=== PATIENT | male | born 1980 | race African-American/Black ===

== ENCOUNTER 2016-11-14 09:26 | Inpatient (IN) | payer OTHER ==
[2016-11-14 10:24] VITALS: BMI 25.7
--- NOTE | 2016-11-14 11:54 | HP ---
CIWA Score - CIWA Score Nausea/Vomitin-Int. Nausea w/Dry Heave Muscle Tremors: 2 Anxiety: 4-Mod. Anxious/Guarded Agitation: 1-Slight > Activity Paroxysmal Sweats: 3 Orientation: 0-Oriented Tacttile Disturbances: 0-None Auditory Disturbances: 0-None Visual Disturbances: 2-Mild Sensitivity Headache: 2-Mild CIWA-Ar Total Score: 18 Admission ROS BHS - HPI Chief Complaint: "I need help, I need to Detox." Pt. is here to Detox from Alcohol. Allergies/Adverse Reactions: Allergies Allergy/AdvReac Type Severity Reaction Status Date / Time No Known Allergies Allergy Verified 11/14/16 11:20 History of Present Illness: Pt. is a 36 YO male here to Detox from Alcohol. This is pt.'s first Detox admission at [facility]. Pt. had 1 Rehab admission at [facility] in 2013. Exam Limitations: No Limitations - Ebola screening Have you traveled outside of the country in the last 21 days: No Have you had contact with anyone from an Ebola affected area: No Have you been sick,other than usual withdrawal symptoms: No Do you have a fever: No - Review of Systems Constitutional: Diaphoresis, Loss of Appetite, Malaise, Night Sweats, Changes in sleep, Unintentional Wgt. Loss (Lost approx. 25 lbs. over last 3 months.) Respiratory: reports: SOB with Exertion Cardiac: reports: Palpitations, Syncope (Last episode several months ago.) GI: reports: Nausea, Indigestion (Heartburn.) : reports: No Symptoms Reported Musculoskeletal: reports: No Symptoms Reported Integumentary: reports: No Symptoms Reported Neuro: reports: Headache, Tremors Endocrine: reports: No Symptoms Reported Hematology: reports: No Symptoms Reported Psychiatric: reports: Judgement Intact, Mood/Affect Appropiate, Orientated x3, Anxious, Depressed (On meds.) Other Systems: Reviewed and Negative Patient History - Patient Medical History Hx Anemia: No Hx Asthma: Yes (Uses Albuterol Inhaler.) Hx Chronic Obstructive Pulmonary Disease (COPD): No Hx Cancer: No Hx Cardiac Disorders: No Hx Congestive Heart Failure: No Hx Hypertension: No Hx Hypercholesterolemia: No Hx Pacemaker: No HX Cerebrovascular Accident: No Hx Seizures: No Hx Dementia: No Hx Diabetes: No Hx Gastrointestinal Disorders: No Hx Liver Disease: No Hx Genitourinary Disorders: No Hx Sexually Transmitted Disorders: No Hx Renal Disease (ESRD): No Hx Thyroid Disease: No Hx Human Immunodeficiency Virus (HIV): No (Last Tested: 2016: NEGATIVE.) Hx Hepatitis C: No (Last Tested: 2016: NEGATIVE.) Hx Depression: Yes (On meds.) Hx Suicide Attempt: No (2007 (Tried to hang himself), 2013 (Drug OD). PT. DENIES CURRENT SI/HI.) Hx Bipolar Disorder: No Hx Schizophrenia: Yes (W/ Paranoia. On meds.) Other Medical History: DENIES. - Patient Surgical History Past Surgical History: No Hx Neurologic Surgery: No Hx Cataract Extraction: No Hx Cardiac Surgery: No Hx Lung Surgery: No Hx Breast Surgery: No Hx Breast Biopsy: No Hx Abdominal Surgery: No Hx Appendectomy: No Hx Cholecystectomy: No Hx Genitourinary Surgery: No Hx Orthopedic Surgery: No Anesthesia Reaction: No - PPD History Previous Implant?: Yes Documented Results: Negative w/o proof Implanted On Prior R Admission?: No PPD to be Administered?: Yes - Reproductive History Patient is a Female of Child Bearing Age (11 -55 yrs old): No (PATIENT IS MALE.) - Smoking Cessation Smoking history: Current every day smoker Have you smoked in the past 12 months: Yes Aproximately how many cigarettes per day: 5 Cigars Per Day: 0 Hx Chewing Tobacco Use: No Initiated information on smoking cessation: Yes 'Breaking Loose' booklet given: 11/14/16 (GIVEN ON UNIT.) - Substance & Tx. History Hx Alcohol Use: Yes Hx Substance Use: Yes Substance Use Type: Alcohol, Cocaine Hx Substance Use Treatment: Yes (1 REHAB admission at [facility] - 2014.) - Substances Abused Alcohol Route: Oral Frequency: Daily Amount used: Rum(1 pint)/alden(1pint) Age of first use: 12 Date of Last Use: 11/14/16 Cocaine Route: Inhalation Frequency: 1-2 times per week Amount used: $ 40. Age of first use: 27 Date of Last Use: 11/10/16 Family Disease History - Family Disease History Family Disease History: Heart Disease: Daughter (Heart defect; No spleen.), CA: Father (Bone, Lung Ca, .), Other: Brother (.) Admission Physical Exam BHS - Vital Signs Vital Signs: Vital Signs - 24 hr 11/14/16 10:22 Temperature 96.3 F L Pulse Rate 81 Respiratory 18 Rate Blood Pressure 122/83 - Physical General Appearance: Yes: Nourished, Appropriately Dressed, Mild Distress, Tremorous, Irritable, Anxious HEENTM: Yes: Hearing grossly Normal, Normocephalic, Normal Voice, NIVIA, Pharynx Normal Respiratory: Yes: Chest Non-Tender, Lungs Clear, No Respiratory Distress, No Accessory Muscle Use Neck: Yes: No masses,lesions,Nodules, Supple, Trachea in good position Breast: Yes: Breast Exam Deferred Cardiology: Yes: Regular Rhythm, Regular Rate, S1, S2 Abdominal: Yes: Normal Bowel Sounds, Non Tender, Soft, Protuberent Genitourinary: Yes: Within Normal Limits Back: Yes: Normal Inspection Musculoskeletal: Yes: full range of Motion, Gait Steady Extremities: Yes: Normal Range of Motion, Non-Tender, Tremors Neurological: Yes: Fully Oriented, Alert, Normal Mood/Affect, Normal Response Integumentary: Yes: Normal Color, Dry, Warm Lymphatic: Yes: Within Normal Limits - Diagnostic (1) Alcohol dependence with uncomplicated withdrawal Current Visit: Yes Status: Acute (2) Cocaine dependence, uncomplicated Current Visit: Yes Status: Acute (3) Nicotine dependence Current Visit: Yes Status: Chronic Qualifiers: Nicotine product type: cigarettes Substance use status: uncomplicated Qualified Code(s): F17.210 - Nicotine dependence, cigarettes, uncomplicated (4) History of depression Current Visit: Yes Status: Chronic (5) History of schizophrenia Current Visit: Yes Status: Chronic (6) Chronic heartburn Current Visit: Yes Status: Chronic Cleared for Admission [facility] - Detox or Rehab [facility] Level of Care: Medically Managed Detox Regimen/Protocol: Librium [facility] Breath Alcohol Content Breath Alcohol Content: 0 Urine Drug Screen - Results Drug Screen Negative: No Urine Drug Screen Results: MASON-Cocaine
[2016-11-14] MEDS ORDERED: chlordiazePOXIDE HCL 25 MG CAPSULE PO PRN (12:25)
[2016-11-14] MEDS ORDERED: chlordiazePOXIDE HCL 25 MG CAPSULE PO ONE (12:25)
[2016-11-14] MEDS ORDERED: MENTHOL/PHENOL 1 EACH UD MM PRN (12:25)
[2016-11-14] MEDS ORDERED: IBUPROFEN 400 MG TABLET (FP) PO PRN (12:25)
[2016-11-14] MEDS ORDERED: NICOTINE POLACRILEX 2 MG GUM BC PRN (12:25)
[2016-11-14] MEDS ORDERED: ACETAMINOPHEN 325 MG TABLET (FP) PO PRN (12:25)
[2016-11-14] MEDS ORDERED: LOPERAMIDE HCL 2 MG CAPSULE PO PRN (12:25)
[2016-11-14] MEDS ORDERED: MAGNESIUM CITRATE 300 ML BOTTLE PO PRN (12:25)
[2016-11-14] MEDS ORDERED: P-EPHED 60MG/TRIPROLIDI 2.5MG TABLET PO PRN (12:25)
[2016-11-14] MEDS ORDERED: guaiFENesin/D-METHORPHAN HB 10 ML UNIT-DOSE CUPS PO PRN (12:25)
[2016-11-14] MEDS ORDERED: MAG HYDROX/AL HYDROX/SIMETH 30 ML UNIT-DOSE CUP PO PRN (12:25)
[2016-11-14] MEDS ORDERED: MAGNESIUM HYDROX 2400MG/30ML ORAL SUSPENSION 30 ML CUP PO PRN (12:25)
[2016-11-14] MEDS ORDERED: diphenhydrAMINE HCL 50 MG CAPSULE PO PRN (12:25)
[2016-11-14] MEDS ORDERED: hydrOXYzine PAMOATE 50 MG CAPSULE (FP) PO PRN (12:25)
[2016-11-14] MEDS ORDERED: ALBUTEROL SO4 6.7 GM HFA INHALER IH PRN (12:30)
--- NOTE | 2016-11-14 13:37 | EKG ---
Test Reason : Blood Pressure : / mmHG Vent. Rate : 075 BPM Atrial Rate : 075 BPM P-R Int : 154 ms QRS Dur : 084 ms QT Int : 372 ms P-R-T Axes : 047 023 025 degrees QTc Int : 415 ms NORMAL SINUS RHYTHM WITH SINUS ARRHYTHMIA NORMAL ECG NO PREVIOUS ECGS AVAILABLE Confirmed by CÉSAR CRAFT MD ([id number]) on 11/14/2016 1:36:33 PM Referred By: Confirmed By:CÉSAR CRAFT MD
[2016-11-14] MEDS: PANTOPRAZOLE 20 MG TABLET (FP) PO SCH (13:43)
[2016-11-14] MEDS: NICOTINE 14 MG/24 HOURS TOPICAL PATCH TD SCH (13:45)
[2016-11-14] MEDS: chlordiazePOXIDE HCL 25 MG CAPSULE PO SCH ×2 (17:11→22:29)
[2016-11-14 18:26] LABS: URINE APPEARANCE SLCLOUDY; URINE BILIRUBIN NEGATIVE (NEGATIVE); URINE BLOOD NEGATIVE (NEGATIVE); URINE COLOR YELLOW; URINE GLUCOSE (UA) NEGATIVE (NEGATIVE); URINE KETONE NEGATIVE (NEGATIVE); URINE LEUK ESTERASE NEGATIVE (NEGATIVE); URINE NITRITE NEGATIVE (NEGATIVE); URINE PROTEIN NEGATIVE (NEGATIVE); URINE UROBILINOGEN NEGATIVE mg/dL (0.2-1.0)
[2016-11-14] MEDS: THIAMINE HCL 100 MG TABLET (FP) PO SCH (22:29)
[2016-11-15] MEDS: chlordiazePOXIDE HCL 25 MG CAPSULE PO SCH ×4 (05:53→22:44)
[2016-11-15 10:06] LABS: MCH 27.2 pg (25.7-33.7); MCHC 32.8 g/dl (32.0-35.9); MEAN CELL VOLUME 82.8 fl (80-96); MEAN PLT VOLUME 8.1 fl (7.5-11.1); PLATELET COUNT 304 K/MM3 (134-434); RDW 12.9 % (11.9-15.9); WHITE BLOOD COUNT 9.2 K/mm3 (4.0-10.0)
[2016-11-15 10:30] LABS: ALBUMIN 3.2 g/dl (3.4-5.0); ALK PHOS 88 U/L (45-117); ANION GAP 7 (8-16); BILIRUBIN,TOTAL 0.2 mg/dL (0.2-1.0); CALCIUM 9.5 mg/dL (8.5-10.1); CO2 32 mmol/L (21-32); CREATININE 1.1 mg/dL (0.7-1.3); GLUCOSE,RANDOM 96 mg/dL (74-106); SGOT/AST 14 U/L (15-37); SGPT/ALT 31 U/L (12-78)
[2016-11-15] MEDS: NICOTINE 14 MG/24 HOURS TOPICAL PATCH TD SCH (10:40)
[2016-11-15] MEDS: PANTOPRAZOLE 20 MG TABLET (FP) PO SCH (10:40)
[2016-11-15] MEDS: PRENATAL VITAMINS W/ FOLIC ACID TABLET (FP) PO SCH (10:40)
--- NOTE | 2016-11-15 10:45 | PN ---
[facility] CIWA - CIWA Score Nausea/Vomitin-No Nausea/No Vomiting Muscle Tremors: 4-Moderate,w/Arms Extend Anxiety: 3 Agitation: 3 Paroxysmal Sweats: 3 Orientation: 0-Oriented Tacttile Disturbances: 0-None Auditory Disturbances: 0-None Visual Disturbances: 0-None Headache: 0-None Present CIWA-Ar Total Score: 13 S Progress Note (SOAP) Subjective: Anxiety,tremors,sweating,interrupted sleep,restless Objective: 11/15/16 10:44 Vital Signs - 8 hr 11/15/16 11/15/16 11/15/16 03:52 06:25 09:39 Temperature 96.6 F L 96.6 F L Pulse Rate 72 77 Respiratory 18 18 18 Rate Blood Pressure 130/92 127/92 Laboratory Last Values WBC 9.2 K/mm3 (4.0-10.0) 11/15/16 07:00 RBC 5.59 M/mm3 (4.00-5.60) 11/15/16 07:00 Hgb 15.2 GM/dL (11.7-16.9) 11/15/16 07:00 Hct 46.3 % (35.4-49) 11/15/16 07:00 MCV 82.8 fl (80-96) 11/15/16 07:00 MCH 27.2 pg (25.7-33.7) 11/15/16 07:00 MCHC 32.8 g/dl (32.0-35.9) 11/15/16 07:00 RDW 12.9 % (11.9-15.9) 11/15/16 07:00 Plt Count 304 K/MM3 (134-434) 11/15/16 07:00 MPV 8.1 fl (7.5-11.1) 11/15/16 07:00 Sodium 142 mmol/L (136-145) 11/15/16 07:00 Potassium 4.0 mmol/L (3.5-5.1) 11/15/16 07:00 Chloride 103 mmol/L (98-107) 11/15/16 07:00 Carbon Dioxide 32 mmol/L (21-32) 11/15/16 07:00 Anion Gap 7 (8-16) L 11/15/16 07:00 BUN 9 mg/dL (7-18) 11/15/16 07:00 Creatinine 1.1 mg/dL (0.7-1.3) 11/15/16 07:00 Creat Clearance w eGFR > 60 (>60) 11/15/16 07:00 Random Glucose 96 mg/dL (74-106) 11/15/16 07:00 Calcium 9.5 mg/dL (8.5-10.1) 11/15/16 07:00 Total Bilirubin 0.2 mg/dL (0.2-1.0) 11/15/16 07:00 AST 14 U/L (15-37) L 11/15/16 07:00 ALT 31 U/L (12-78) 11/15/16 07:00 Alkaline Phosphatase 88 U/L (45-117) 11/15/16 07:00 Total Protein 7.0 g/dl (6.4-8.2) 11/15/16 07:00 Albumin 3.2 g/dl (3.4-5.0) L 11/15/16 07:00 Urine Color Yellow 11/14/16 16:45 Urine Appearance Slcloudy 11/14/16 16:45 Urine pH 6.0 (5.0-8.0) 11/14/16 16:45 Ur Specific [place] 1.025 (1.005-1.025) 11/14/16 16:45 Urine Protein Negative (NEGATIVE) 11/14/16 16:45 Urine Glucose (UA) Negative (NEGATIVE) 11/14/16 16:45 Urine Ketones Negative (NEGATIVE) 11/14/16 16:45 Urine Blood Negative (NEGATIVE) 11/14/16 16:45 Urine Nitrite Negative (NEGATIVE) 11/14/16 16:45 Urine Bilirubin Negative (NEGATIVE) 11/14/16 16:45 Urine Urobilinogen Negative mg/dL (0.2-1.0) 11/14/16 16:45 Ur Leukocyte Esterase Negative (NEGATIVE) 11/14/16 16:45 labs noted Assessment: 11/15/16 10:45 Withdrawal sx. Plan: Continue detox
[2016-11-15 11:22] LABS: HIV 1 & 2 AB NEGATIVE; HIV 1 AGp24 NEGATIVE
[2016-11-15 12:21] LABS: SICKLE CELL SCREEN NEGATIVE (NEGATIVE)
--- NOTE | 2016-11-15 12:30 | CONSULT ---
[facility] Psychiatric Consult - Data Date of interview: 11/15/16 Admission source: [facility] Identifying data: First admission to [facility] for this 36 y/o male from [place] ancestry seeking detox treatment on for alcohol and cocaine dependence.Patient is ,a father of two,domiciled,unemployed and supported on welfare. Substance Abuse History: Discusssed with patient in this interview.Mr Hagen confirms this [facility] report. Smoking Cessation. Smoking history: Current every day smoker. Have you smoked in the past 12 months: Yes. Aproximately how many cigarettes per day: 5. Cigars Per Day: 0. Hx Chewing Tobacco Use: No. Initiated information on smoking cessation: Yes. 'Breaking Loose' booklet given : 11/14/16 (GIVEN ON UNIT.). - Substance & Tx. History. Hx Alcohol Use: Yes. Hx Substance Use: Yes. Substance Use Type: Alcohol, Cocaine. Hx Substance Use Treatment: Yes (1 REHAB admission at [facility] - 2014.) . - Substances Abused. Alcohol. Route: Oral. Frequency: Daily. Amount used: Rum(1 pint)/alden(1pint). Age of first use: 12. Date of Last Use: 11/14. Cocaine. Route: Inhalation. Frequency: 1-2 times per week. Amount used: $ 40. Age of first use: 27. Date of Last Use: 11/10/16 Medical History: Bronchial asthma. Psychiatric History: Patient is an irritable and guarded historian.Reluctant to provide personal information.Mr Hagen admits to a history of psychiatric hospitalizations at [facility].Diagnosed with Paranoid Schizophrenia.History of treatment with various drugs including but not limited to zoloft,wellbutrin,risperdal,abilify and prozac.OPD care is rendered at [facility] clinic in [facility].Noted history of past suicide attempts (hanging in [address] drugs in 2013). Physical/Sexual Abuse/Trauma History: Patient denies. Additional Comment: Urine Drug Screen Results: MASON-Cocaine.Noted. Mental Status Exam - Mental Status Exam Alert and Oriented to: Time, Place, Person Cognitive Function: Good Patient Appearance: Unkempt, Disheveled Mood: Hostile, Withdrawn, Irritable Affect: Blunted Patient Behavior: Fatigued, Guarded, Suspicious (avoids eye contact) Speech Pattern: Clear (non spontaneous) Voice Loudness: Normal Thought Process: Goal Oriented Thought Disorder: Paranoid Ideation, Bizarre Hallucinations: Denies Suicidal Ideation: Denies Homicidal Ideation: Denies Insight/Judgement: Poor Sleep: Poorly, Difficulty falling asleep Appetite: Good Muscle strength/Tone: Normal Gait/Station: Normal Psychiatric Findings - Problem List ([place] 1, 2,3) (1) Schizophrenia, paranoid type Current Visit: Yes Status: Chronic (2) Cocaine dependence, uncomplicated Current Visit: Yes Status: Acute (3) Nicotine dependence Current Visit: Yes Status: Acute Qualifiers: Nicotine product type: cigarettes Substance use status: uncomplicated Qualified Code(s): F17.210 - Nicotine dependence, cigarettes, uncomplicated (4) Substance induced mood disorder Current Visit: Yes Status: Acute (5) Insomnia Current Visit: Yes Status: Acute - Initial Treatment Plan Initial Treatment Plan: Psychoeducation.Detoxification.Medications : risperdal 2 mg po bid + cogentin 1 mg po bid + zoloft 100 mg po daily + wellbutrin XL 300 mg po daily.Medications are verified with pharmacist at [facility] ).Last filled scripts on 10/07/16.Side effects/benefits discussed with patient.Mr Hagen agrees to continue this regime of medications in this hospital course.Observation.
[2016-11-15] MEDS: BENZTROPINE MESYLATE 1 MG TABLET (FP) PO SCH ×2 (14:34→22:44)
[2016-11-15] MEDS: risperiDONE 2 MG TABLET PO SCH ×2 (14:34→22:44)
[2016-11-15] MEDS: SERTRALINE HCL 50 MG TABLET (FP) PO SCH (14:34)
[2016-11-15] MEDS: THIAMINE HCL 100 MG TABLET (FP) PO SCH (22:45)
[2016-11-16] MEDS: chlordiazePOXIDE HCL 25 MG CAPSULE PO SCH ×2 (05:37→10:27)
[2016-11-16] MEDS: BENZTROPINE MESYLATE 1 MG TABLET (FP) PO SCH ×2 (10:27→22:50)
[2016-11-16] MEDS: PANTOPRAZOLE 20 MG TABLET (FP) PO SCH (10:27)
[2016-11-16] MEDS: SERTRALINE HCL 50 MG TABLET (FP) PO SCH (10:27)
[2016-11-16] MEDS: risperiDONE 2 MG TABLET PO SCH ×2 (10:27→22:50)
[2016-11-16] MEDS: PRENATAL VITAMINS W/ FOLIC ACID TABLET (FP) PO SCH (10:27)
[2016-11-16] MEDS: NICOTINE 14 MG/24 HOURS TOPICAL PATCH TD SCH (10:27)
--- NOTE | 2016-11-16 11:12 | PN ---
[facility] CIWA - CIWA Score Nausea/Vomitin-Int. Nausea w/Dry Heave Muscle Tremors: 4-Moderate,w/Arms Extend Anxiety: 3 Agitation: 3 Paroxysmal Sweats: 1-Minimal Palms Moist Orientation: 0-Oriented Tacttile Disturbances: 2-Mild Itch/Numbness/Burn Auditory Disturbances: 0-None Visual Disturbances: 0-None Headache: 0-None Present CIWA-Ar Total Score: 17 BHS Progress Note (SOAP) Subjective: ANXIETY,TREMORS,NAUSEA. Objective: 11/16/16 11:11 Vital Signs Temperature 98.6 F 11/16/16 09:38 Pulse Rate 101 H 11/16/16 09:38 Respiratory Rate 20 11/16/16 09:38 Blood Pressure 131/90 11/16/16 09:38 O2 Sat by Pulse Oximetry (%) Laboratory Last Values WBC 9.2 K/mm3 (4.0-10.0) 11/15/16 07:00 RBC 5.59 M/mm3 (4.00-5.60) 11/15/16 07:00 Hgb 15.2 GM/dL (11.7-16.9) 11/15/16 07:00 Hct 46.3 % (35.4-49) 11/15/16 07:00 MCV 82.8 fl (80-96) 11/15/16 07:00 MCH 27.2 pg (25.7-33.7) 11/15/16 07:00 MCHC 32.8 g/dl (32.0-35.9) 11/15/16 07:00 RDW 12.9 % (11.9-15.9) 11/15/16 07:00 Plt Count 304 K/MM3 (134-434) 11/15/16 07:00 MPV 8.1 fl (7.5-11.1) 11/15/16 07:00 Sickle Cell Screen Negative (NEGATIVE) 11/15/16 07:00 Sodium 142 mmol/L (136-145) 11/15/16 07:00 Potassium 4.0 mmol/L (3.5-5.1) 11/15/16 07:00 Chloride 103 mmol/L (98-107) 11/15/16 07:00 Carbon Dioxide 32 mmol/L (21-32) 11/15/16 07:00 Anion Gap 7 (8-16) L 11/15/16 07:00 BUN 9 mg/dL (7-18) 11/15/16 07:00 Creatinine 1.1 mg/dL (0.7-1.3) 11/15/16 07:00 Creat Clearance w eGFR > 60 (>60) 11/15/16 07:00 Random Glucose 96 mg/dL (74-106) 11/15/16 07:00 Calcium 9.5 mg/dL (8.5-10.1) 11/15/16 07:00 Total Bilirubin 0.2 mg/dL (0.2-1.0) 11/15/16 07:00 AST 14 U/L (15-37) L 11/15/16 07:00 ALT 31 U/L (12-78) 11/15/16 07:00 Alkaline Phosphatase 88 U/L (45-117) 11/15/16 07:00 Total Protein 7.0 g/dl (6.4-8.2) 11/15/16 07:00 Albumin 3.2 g/dl (3.4-5.0) L 11/15/16 07:00 Urine Color Yellow 11/14/16 16:45 Urine Appearance Slcloudy 11/14/16 16:45 Urine pH 6.0 (5.0-8.0) 11/14/16 16:45 Ur Specific [place] 1.025 (1.005-1.025) 11/14/16 16:45 Urine Protein Negative (NEGATIVE) 11/14/16 16:45 Urine Glucose (UA) Negative (NEGATIVE) 11/14/16 16:45 Urine Ketones Negative (NEGATIVE) 11/14/16 16:45 Urine Blood Negative (NEGATIVE) 11/14/16 16:45 Urine Nitrite Negative (NEGATIVE) 11/14/16 16:45 Urine Bilirubin Negative (NEGATIVE) 11/14/16 16:45 Urine Urobilinogen Negative mg/dL (0.2-1.0) 11/14/16 16:45 Ur Leukocyte Esterase Negative (NEGATIVE) 11/14/16 16:45 RPR Titer Nonreactive (NONREACTIVE) 11/15/16 07:00 HIV 1&2 Antibody Screen Negative 11/15/16 08:40 HIV P24 Antigen Negative 11/15/16 08:40 Assessment: 11/16/16 11:11 WITHDRAWAL SX Plan: CONTINUE DETOX
[2016-11-16] MEDS: chlordiazePOXIDE 5 MG CAPSULE PO SCH ×2 (17:39→22:50)
[2016-11-16] MEDS: THIAMINE HCL 100 MG TABLET (FP) PO SCH (22:50)
[2016-11-17] MEDS: chlordiazePOXIDE 5 MG CAPSULE PO SCH ×2 (07:46→10:39)
--- NOTE | 2016-11-17 10:17 | PN ---
S Progress Note (SOAP) Subjective: ANXIETY,CHILLS, SLIGHT TREMORS,LAYING IN BED/FATIGUE BUT RESPONDS APPROPRIATELY."TOSSED AND TURNED LAST NIGHT". Objective: 11/17/16 10:17 Vital Signs Temperature 97.9 F 11/17/16 09:28 Pulse Rate 100 H 11/17/16 09:28 Respiratory Rate 20 11/17/16 09:28 Blood Pressure 136/86 11/17/16 09:28 O2 Sat by Pulse Oximetry (%) Laboratory Last Values WBC 9.2 K/mm3 (4.0-10.0) 11/15/16 07:00 RBC 5.59 M/mm3 (4.00-5.60) 11/15/16 07:00 Hgb 15.2 GM/dL (11.7-16.9) 11/15/16 07:00 Hct 46.3 % (35.4-49) 11/15/16 07:00 MCV 82.8 fl (80-96) 11/15/16 07:00 MCH 27.2 pg (25.7-33.7) 11/15/16 07:00 MCHC 32.8 g/dl (32.0-35.9) 11/15/16 07:00 RDW 12.9 % (11.9-15.9) 11/15/16 07:00 Plt Count 304 K/MM3 (134-434) 11/15/16 07:00 MPV 8.1 fl (7.5-11.1) 11/15/16 07:00 Sickle Cell Screen Negative (NEGATIVE) 11/15/16 07:00 Sodium 142 mmol/L (136-145) 11/15/16 07:00 Potassium 4.0 mmol/L (3.5-5.1) 11/15/16 07:00 Chloride 103 mmol/L (98-107) 11/15/16 07:00 Carbon Dioxide 32 mmol/L (21-32) 11/15/16 07:00 Anion Gap 7 (8-16) L 11/15/16 07:00 BUN 9 mg/dL (7-18) 11/15/16 07:00 Creatinine 1.1 mg/dL (0.7-1.3) 11/15/16 07:00 Creat Clearance w eGFR > 60 (>60) 11/15/16 07:00 Random Glucose 96 mg/dL (74-106) 11/15/16 07:00 Calcium 9.5 mg/dL (8.5-10.1) 11/15/16 07:00 Total Bilirubin 0.2 mg/dL (0.2-1.0) 11/15/16 07:00 AST 14 U/L (15-37) L 11/15/16 07:00 ALT 31 U/L (12-78) 11/15/16 07:00 Alkaline Phosphatase 88 U/L (45-117) 11/15/16 07:00 Total Protein 7.0 g/dl (6.4-8.2) 11/15/16 07:00 Albumin 3.2 g/dl (3.4-5.0) L 11/15/16 07:00 Urine Color Yellow 11/14/16 16:45 Urine Appearance Slcloudy 11/14/16 16:45 Urine pH 6.0 (5.0-8.0) 11/14/16 16:45 Ur Specific [place] 1.025 (1.005-1.025) 11/14/16 16:45 Urine Protein Negative (NEGATIVE) 11/14/16 16:45 Urine Glucose (UA) Negative (NEGATIVE) 11/14/16 16:45 Urine Ketones Negative (NEGATIVE) 11/14/16 16:45 Urine Blood Negative (NEGATIVE) 11/14/16 16:45 Urine Nitrite Negative (NEGATIVE) 11/14/16 16:45 Urine Bilirubin Negative (NEGATIVE) 11/14/16 16:45 Urine Urobilinogen Negative mg/dL (0.2-1.0) 11/14/16 16:45 Ur Leukocyte Esterase Negative (NEGATIVE) 11/14/16 16:45 RPR Titer Nonreactive (NONREACTIVE) 11/15/16 07:00 HIV 1&2 Antibody Screen Negative 11/15/16 08:40 HIV P24 Antigen Negative 11/15/16 08:40 Assessment: 11/17/16 10:17 WITHDRAWAL SX Plan: CONTINUE DETOX
[2016-11-17] MEDS: PRENATAL VITAMINS W/ FOLIC ACID TABLET (FP) PO SCH (10:38)
[2016-11-17] MEDS: risperiDONE 2 MG TABLET PO SCH ×2 (10:38→22:43)
[2016-11-17] MEDS: SERTRALINE HCL 50 MG TABLET (FP) PO SCH (10:38)
[2016-11-17] MEDS: PANTOPRAZOLE 20 MG TABLET (FP) PO SCH (10:38)
[2016-11-17] MEDS: NICOTINE 14 MG/24 HOURS TOPICAL PATCH TD SCH (10:39)
[2016-11-17] MEDS: BENZTROPINE MESYLATE 1 MG TABLET (FP) PO SCH ×2 (10:39→22:43)
[2016-11-17] MEDS: chlordiazePOXIDE HCL 10 MG CAPSULE PO SCH ×2 (17:24→22:43)
[2016-11-17] MEDS: THIAMINE HCL 100 MG TABLET (FP) PO SCH (22:43)
[2016-11-18] MEDS: chlordiazePOXIDE HCL 10 MG CAPSULE PO SCH (06:00)
[2016-11-18 06:43] VITALS: BP 123/89; PULSE 95; TEMP 96.7
[2016-11-18] MEDS: SERTRALINE HCL 50 MG TABLET (FP) PO SCH (09:52)
[2016-11-18] MEDS: PANTOPRAZOLE 20 MG TABLET (FP) PO SCH (09:52)
[2016-11-18] MEDS: PRENATAL VITAMINS W/ FOLIC ACID TABLET (FP) PO SCH (09:52)
[2016-11-18] MEDS: BENZTROPINE MESYLATE 1 MG TABLET (FP) PO SCH (09:52)
--- NOTE | 2016-11-18 11:51 | DS ---
[facility] Detox Discharge Summary Admission Date: 11/14/16 Discharge Date: 11/18/16 - History Present History: Alcohol Dependence, Cocaine Dependence Additional Comments: DETOX COMPLETED. ALERT O X 3. NAD. PT INSTRUCTED TO FOLLOW UP WITH PMD AT [facility], [address] [place] [address]. Pertinent Past History: HIV+ SCHIZOPHRENIA - Physical Exam Results Vital Signs: Vital Signs Temperature 96.7 F L 11/18/16 06:42 Pulse Rate 95 H 11/18/16 06:42 Respiratory Rate 18 11/18/16 06:42 Blood Pressure 123/89 11/18/16 06:42 O2 Sat by Pulse Oximetry (%) Pertinent Admission Physical Exam Findings: WITHDRAWAL SX Laboratory Last Values WBC 9.2 K/mm3 (4.0-10.0) 11/15/16 07:00 RBC 5.59 M/mm3 (4.00-5.60) 11/15/16 07:00 Hgb 15.2 GM/dL (11.7-16.9) 11/15/16 07:00 Hct 46.3 % (35.4-49) 11/15/16 07:00 MCV 82.8 fl (80-96) 11/15/16 07:00 MCH 27.2 pg (25.7-33.7) 11/15/16 07:00 MCHC 32.8 g/dl (32.0-35.9) 11/15/16 07:00 RDW 12.9 % (11.9-15.9) 11/15/16 07:00 Plt Count 304 K/MM3 (134-434) 11/15/16 07:00 MPV 8.1 fl (7.5-11.1) 11/15/16 07:00 Sickle Cell Screen Negative (NEGATIVE) 11/15/16 07:00 Sodium 142 mmol/L (136-145) 11/15/16 07:00 Potassium 4.0 mmol/L (3.5-5.1) 11/15/16 07:00 Chloride 103 mmol/L (98-107) 11/15/16 07:00 Carbon Dioxide 32 mmol/L (21-32) 11/15/16 07:00 Anion Gap 7 (8-16) L 11/15/16 07:00 BUN 9 mg/dL (7-18) 11/15/16 07:00 Creatinine 1.1 mg/dL (0.7-1.3) 11/15/16 07:00 Creat Clearance w eGFR > 60 (>60) 11/15/16 07:00 Random Glucose 96 mg/dL (74-106) 11/15/16 07:00 Calcium 9.5 mg/dL (8.5-10.1) 11/15/16 07:00 Total Bilirubin 0.2 mg/dL (0.2-1.0) 11/15/16 07:00 AST 14 U/L (15-37) L 11/15/16 07:00 ALT 31 U/L (12-78) 11/15/16 07:00 Alkaline Phosphatase 88 U/L (45-117) 11/15/16 07:00 Total Protein 7.0 g/dl (6.4-8.2) 11/15/16 07:00 Albumin 3.2 g/dl (3.4-5.0) L 11/15/16 07:00 Urine Color Yellow 11/14/16 16:45 Urine Appearance Slcloudy 11/14/16 16:45 Urine pH 6.0 (5.0-8.0) 11/14/16 16:45 Ur Specific [place] 1.025 (1.005-1.025) 11/14/16 16:45 Urine Protein Negative (NEGATIVE) 11/14/16 16:45 Urine Glucose (UA) Negative (NEGATIVE) 11/14/16 16:45 Urine Ketones Negative (NEGATIVE) 11/14/16 16:45 Urine Blood Negative (NEGATIVE) 11/14/16 16:45 Urine Nitrite Negative (NEGATIVE) 11/14/16 16:45 Urine Bilirubin Negative (NEGATIVE) 11/14/16 16:45 Urine Urobilinogen Negative mg/dL (0.2-1.0) 11/14/16 16:45 Ur Leukocyte Esterase Negative (NEGATIVE) 11/14/16 16:45 RPR Titer Nonreactive (NONREACTIVE) 11/15/16 07:00 HIV 1&2 Antibody Screen Negative 11/15/16 08:40 HIV P24 Antigen Negative 11/15/16 08:40 - Treatment Hospital Course: Detox Protocol Followed, Detoxed Safely, Responded well, Discharged Condition Good, Rehab Referral Accepted Patient has Accepted a Rehab Referral to: [facility] [place] - Medication Discharge Medications: Ambulatory Orders Albuterol Sulfate Inhaler - [Ventolin Hfa Inhaler -] 2 inh PO Q4H PRN 11/14/16 Benztropine Mesylate [Cogentin -] 2 mg PO TID 11/14/16 Bupropion HCl [Wellbutrin Xl] 300 mg PO DAILY 11/14/16 Omeprazole 20 mg PO DAILY 11/14/16 Risperidone [Risperdal -] 3 mg PO DAILY 11/14/16 Benztropine Mesylate [Cogentin -] 1 mg PO BID #60 tablet 11/15/16 Risperidone [Risperdal] 2 mg PO BID #60 tablet 11/15/16 Sertraline HCl [Zoloft] 100 mg PO DAILY #30 tablet 11/15/16 - Diagnosis (1) Alcohol dependence with uncomplicated withdrawal Status: Acute (2) Nicotine dependence Status: Acute Qualifiers: Nicotine product type: cigarettes Substance use status: in withdrawal Qualified Code(s): F17.213 - Nicotine dependence, cigarettes, with withdrawal (3) Cocaine dependence, uncomplicated Status: Acute (4) Insomnia Status: Acute (5) Substance induced mood disorder Status: Acute (6) Schizophrenia, paranoid type Status: Chronic (7) History of asthma Status: Chronic (8) GERD (gastroesophageal reflux disease) Status: Chronic Qualifiers: Esophagitis presence: without esophagitis Qualified Code(s): K21.9 - Gastro-esophageal reflux disease without esophagitis - AMA Did Patient Leave Against Medical Advice: No
== END 2016-11-18 09:57 | disposition home or self-care (01) | DRG 774 ==
LOC: YASAS 09:26 → Y3N 12:24
PROVIDERS: ADMIT Internal Medicine; ATTEND Internal Medicine
PROC: HZ2ZZZZ Detoxification Services for Substance Abuse Treatment (ICD-10-PCS; principal; 2016-11-18)
DX: F10.230 Alcohol dependence with withdrawal, uncomplicated (principal); F14.20 Cocaine dependence, uncomplicated; F17.213 Nicotine dependence, cigarettes, with withdrawal; F19.24 Other psychoactive substance dependence with psychoactive substance-induced mood disorder; F20.0 Paranoid schizophrenia; G47.00 Insomnia, unspecified; K21.9 Gastro-esophageal reflux disease without esophagitis; J45.909 Unspecified asthma, uncomplicated; Z91.5 Personal history of self-harm
CPT/HCPCS: 36415; 80053; 81003; 85027; 85660; 86593; 87389; 93005; 93010

== ENCOUNTER 2023-02-01 14:33 | Inpatient (IN) | payer OTHER ==
[2023-02-01 14:57] VITALS: BMI 27.4
[2023-02-01] MEDS ORDERED: IBUPROFEN 400 MG TABLET (FP) PO PRN (16:00)
[2023-02-01] MEDS ORDERED: guaiFENesin 600 MG TABLET.ER (FP) PO PRN (16:00)
[2023-02-01] MEDS ORDERED: LOPERAMIDE HCL 2 MG CAPSULE PO PRN (16:00)
[2023-02-01] MEDS ORDERED: MAGNESIUM HYDROX 2400MG/30ML ORAL SUSPENSION 30 ML CUP PO PRN (16:00)
[2023-02-01] MEDS ORDERED: MAG HYDROX/AL HYDROX/SIMETH 30 ML UNIT-DOSE CUP PO PRN (16:00)
[2023-02-01] MEDS ORDERED: BENZONATATE 200 MG CAPSULE PO PRN (16:00)
[2023-02-01] MEDS ORDERED: ACETAMINOPHEN 325 MG TABLET (FP) PO PRN (16:00)
[2023-02-01] MEDS ORDERED: NALOXONE HCL (KLOXXADO) 8 MG SPRAY NS PRN (16:00)
[2023-02-01] MEDS ORDERED: POLYETHYLENE GLYCOL (HEALTHYLAX) 3350 17 GM PACKET PO PRN (16:00)
[2023-02-01] MEDS ORDERED: BENZOCAINE/MENTHOL (CHLORASEPTIC ) LOZENGE MM PRN (16:00)
[2023-02-01] MEDS ORDERED: NALOXONE HCL 0.4 MG/ML VIAL IM PRN (16:00)
[2023-02-01] MEDS ORDERED: IBUPROFEN 600 MG TABLET (FP) PO PRN (16:00)
[2023-02-01] MEDS ORDERED: ALBUTEROL SO4 HFA INHALER IH PRN (16:03)
[2023-02-01] MEDS: NICOTINE 7 MG/24 HOURS TOPICAL PATCH TD SCH (18:59)
[2023-02-01] MEDS: PRENATAL VITAMINS W/ FOLIC ACID TABLET (FP) PO SCH (18:59)
[2023-02-01] MEDS: MELATONIN 5 MG TABLETS PO SCH (21:01)
[2023-02-01] MEDS: hydrOXYzine PAMOATE 25 MG CAPSULE (FP) PO PRN (21:01)
[2023-02-01] MEDS: THIAMINE HCL 100 MG TABLET (FP) PO SCH (21:01)
[2023-02-02] MEDS: NICOTINE 7 MG/24 HOURS TOPICAL PATCH TD SCH (09:28)
[2023-02-02] MEDS: PRENATAL VITAMINS W/ FOLIC ACID TABLET (FP) PO SCH (09:28)
[2023-02-02 11:16] LABS: HEMATOCRIT 45.3 % (35.4-49); HEMOGLOBIN 14.7 GM/dL (11.7-16.9); MCH 26.6 pg (25.7-33.7); MCHC 32.4 g/dl (32.0-35.9); MEAN PLT VOLUME 7.7 fl (7.5-11.1); PLATELET COUNT 263 10^3/uL (134-434); RBC 5.53 M/mm3 (4.00-5.60); RDW 13.6 % (11.9-15.9); WHITE BLOOD COUNT 8.2 K/mm3 (4.0-10.0)
[2023-02-02 11:31] LABS: SYPHILIS W/ RPR CONF NON-REACTIVE (NONREACTIVE)
[2023-02-02 11:33] LABS: PH,URINE 6.5 (5.0-8.0); URINE APPEARANCE CLEAR; URINE BILIRUBIN NEGATIVE (NEGATIVE); URINE COLOR YELLOW; URINE GLUCOSE (UA) NEGATIVE (NEGATIVE); URINE KETONE NEGATIVE (NEGATIVE); URINE LEUK ESTERASE NEGATIVE (NEGATIVE); URINE NITRITE NEGATIVE (NEGATIVE); URINE PROTEIN NEGATIVE (NEGATIVE); URINE UROBILINOGEN 0.2 mg/dL (0.2-1.0)
[2023-02-02] MEDS ORDERED: TUBERCULIN PPD 5 TU/0.1ML VIAL ID ONE (11:34)
[2023-02-02] MEDS ORDERED: TUBERCULIN PPD 5 TU/0.1ML SYRINGE (IN PATIENT USE ONLY) ID ONE (12:00)
[2023-02-02 12:19] LABS: CHLORIDE 101 mmol/L (98-107); POTASSIUM 3.9 mmol/L (3.5-5.1); SODIUM 140 mmol/L (136-145)
[2023-02-02 12:22] LABS: ANION GAP 5 mmol/L (4-13); CALCIUM 9.2 mg/dL (8.5-10.1); CO2 34 mmol/L (21-32)
[2023-02-02 12:23] LABS: ALBUMIN 3.5 g/dl (3.4-5.0); GLUCOSE,RANDOM 203 mg/dL (74-106)
[2023-02-02 12:25] LABS: SGPT/ALT 44 U/L (13-61)
[2023-02-02 12:26] LABS: SGOT/AST 19 U/L (15-37)
[2023-02-02 12:27] LABS: BILIRUBIN,TOTAL 0.6 mg/dL (0.2-1); TOT PROT 7.2 g/dl (6.4-8.2)
[2023-02-02 12:28] LABS: ALK PHOS 89 U/L (45-117)
[2023-02-02] MEDS: hydrOXYzine PAMOATE 25 MG CAPSULE (FP) PO PRN (13:08)
[2023-02-02] MEDS: risperiDONE 1 MG TABLET PO SCH (21:26)
[2023-02-02] MEDS: BENZTROPINE MESYLATE 0.5 MG TABLET (FP) PO SCH (21:26)
[2023-02-02] MEDS: THIAMINE HCL 100 MG TABLET (FP) PO SCH (21:26)
[2023-02-02] MEDS: MELATONIN 5 MG TABLETS PO SCH (21:26)
[2023-02-03] MEDS: PRENATAL VITAMINS W/ FOLIC ACID TABLET (FP) PO SCH (09:41)
[2023-02-03] MEDS: NICOTINE 7 MG/24 HOURS TOPICAL PATCH TD SCH (09:41)
[2023-02-03] MEDS ORDERED: PATIENT'S OWN MEDICATION (NON-FORMULARY) (Bupropion Hcl [Wellbutrin Xl] 300 MG Tab.Er.24h) PO SCH (10:00)
[2023-02-03] MEDS: glipiZIDE 5 MG TABLET (FP) PO SCH (11:13)
[2023-02-03] MEDS: LISINOPRIL 5 MG TABLET PO SCH (11:13)
[2023-02-03] MEDS: PANTOPRAZOLE 20 MG TABLET PO SCH (11:13)
[2023-02-03] MEDS: metFORMIN HCL 500 MG TABLET (FP) PO SCH (11:13)
[2023-02-03] MEDS: MONTELUKAST NA 10 MG TABLET PO SCH (11:13)
[2023-02-03] MEDS: MECLIZINE HCL 25 MG TABLET (FP) PO SCH (11:20)
[2023-02-03] MEDS: INSULIN SLIDING SCALE (NOVOLOG) 1 VIAL SQ SCH (16:17)
[2023-02-03] MEDS: risperiDONE 1 MG TABLET PO SCH (21:11)
[2023-02-03] MEDS: MELATONIN 5 MG TABLETS PO SCH (21:11)
[2023-02-03] MEDS: THIAMINE HCL 100 MG TABLET (FP) PO SCH (21:11)
[2023-02-03] MEDS: BENZTROPINE MESYLATE 0.5 MG TABLET (FP) PO SCH (21:11)
[2023-02-04] MEDS: INSULIN SLIDING SCALE (NOVOLOG) 1 VIAL SQ SCH ×2 (06:18→16:46)
[2023-02-04] MEDS: glipiZIDE 5 MG TABLET (FP) PO SCH (06:18)
[2023-02-04] MEDS: metFORMIN HCL 500 MG TABLET (FP) PO SCH (06:18)
[2023-02-04] MEDS: PRENATAL VITAMINS W/ FOLIC ACID TABLET (FP) PO SCH (09:39)
[2023-02-04] MEDS: MECLIZINE HCL 25 MG TABLET (FP) PO SCH (09:40)
[2023-02-04] MEDS: PANTOPRAZOLE 20 MG TABLET PO SCH (09:40)
[2023-02-04] MEDS: LISINOPRIL 5 MG TABLET PO SCH (09:40)
[2023-02-04] MEDS: MONTELUKAST NA 10 MG TABLET PO SCH (09:40)
[2023-02-04] MEDS: NICOTINE 7 MG/24 HOURS TOPICAL PATCH TD SCH (09:41)
[2023-02-04] MEDS: risperiDONE 1 MG TABLET PO SCH (21:29)
[2023-02-04] MEDS: BENZTROPINE MESYLATE 0.5 MG TABLET (FP) PO SCH (21:30)
[2023-02-04] MEDS: THIAMINE HCL 100 MG TABLET (FP) PO SCH (21:30)
[2023-02-04] MEDS: SUVOREXANT 10 MG TABLET PO PRN (21:31)
[2023-02-05] MEDS: glipiZIDE 5 MG TABLET (FP) PO SCH (06:32)
[2023-02-05] MEDS: metFORMIN HCL 500 MG TABLET (FP) PO SCH (06:32)
[2023-02-05] MEDS: INSULIN SLIDING SCALE (NOVOLOG) 1 VIAL SQ SCH ×2 (07:43→16:15)
[2023-02-05] MEDS: PRENATAL VITAMINS W/ FOLIC ACID TABLET (FP) PO SCH (09:46)
[2023-02-05] MEDS: NICOTINE 7 MG/24 HOURS TOPICAL PATCH TD SCH (09:46)
[2023-02-05] MEDS: LISINOPRIL 5 MG TABLET PO SCH (09:47)
[2023-02-05] MEDS: MECLIZINE HCL 25 MG TABLET (FP) PO SCH (09:47)
[2023-02-05] MEDS: MONTELUKAST NA 10 MG TABLET PO SCH (09:47)
[2023-02-05] MEDS: PANTOPRAZOLE 20 MG TABLET PO SCH (09:47)
[2023-02-05] MEDS: THIAMINE HCL 100 MG TABLET (FP) PO SCH (21:06)
[2023-02-05] MEDS: risperiDONE 1 MG TABLET PO SCH (21:06)
[2023-02-05] MEDS: BENZTROPINE MESYLATE 0.5 MG TABLET (FP) PO SCH (21:06)
[2023-02-05] MEDS: SUVOREXANT 10 MG TABLET PO PRN (21:07)
[2023-02-06] MEDS: glipiZIDE 5 MG TABLET (FP) PO SCH (06:23)
[2023-02-06] MEDS: metFORMIN HCL 500 MG TABLET (FP) PO SCH (06:23)
[2023-02-06] MEDS: INSULIN SLIDING SCALE (NOVOLOG) 1 VIAL SQ SCH ×2 (06:25→16:23)
[2023-02-06] MEDS: MECLIZINE HCL 25 MG TABLET (FP) PO SCH (10:11)
[2023-02-06] MEDS: MONTELUKAST NA 10 MG TABLET PO SCH (10:11)
[2023-02-06] MEDS: PRENATAL VITAMINS W/ FOLIC ACID TABLET (FP) PO SCH (10:11)
[2023-02-06] MEDS: LISINOPRIL 5 MG TABLET PO SCH (10:11)
[2023-02-06] MEDS: PANTOPRAZOLE 20 MG TABLET PO SCH (10:11)
[2023-02-06] MEDS: NICOTINE 7 MG/24 HOURS TOPICAL PATCH TD SCH (10:11)
[2023-02-06] MEDS: risperiDONE 1 MG TABLET PO SCH (21:22)
[2023-02-06] MEDS: THIAMINE HCL 100 MG TABLET (FP) PO SCH (21:22)
[2023-02-06] MEDS: BENZTROPINE MESYLATE 0.5 MG TABLET (FP) PO SCH (21:22)
[2023-02-06] MEDS ORDERED: SUVOREXANT 10 MG TABLET PO PRN (22:00)
[2023-02-07] MEDS: metFORMIN HCL 500 MG TABLET (FP) PO SCH (06:46)
[2023-02-07] MEDS: glipiZIDE 5 MG TABLET (FP) PO SCH (06:46)
[2023-02-07] MEDS: INSULIN SLIDING SCALE (NOVOLOG) 1 VIAL SQ SCH ×2 (06:49→17:42)
[2023-02-07] MEDS: LISINOPRIL 5 MG TABLET PO SCH (09:40)
[2023-02-07] MEDS: MECLIZINE HCL 25 MG TABLET (FP) PO SCH (09:40)
[2023-02-07] MEDS: MONTELUKAST NA 10 MG TABLET PO SCH (09:40)
[2023-02-07] MEDS: PANTOPRAZOLE 20 MG TABLET PO SCH (09:40)
[2023-02-07] MEDS: PRENATAL VITAMINS W/ FOLIC ACID TABLET (FP) PO SCH (09:40)
[2023-02-07] MEDS: NICOTINE 7 MG/24 HOURS TOPICAL PATCH TD SCH (09:43)
[2023-02-07] MEDS: CLOTRIMAZOLE 1% CREAM TP SCH ×2 (14:27→21:30)
[2023-02-07] MEDS: THIAMINE HCL 100 MG TABLET (FP) PO SCH (21:29)
[2023-02-07] MEDS: BENZTROPINE MESYLATE 0.5 MG TABLET (FP) PO SCH (21:30)
[2023-02-07] MEDS: risperiDONE 1 MG TABLET PO SCH (21:30)
[2023-02-08] MEDS: metFORMIN HCL 500 MG TABLET (FP) PO SCH (06:02)
[2023-02-08] MEDS: glipiZIDE 5 MG TABLET (FP) PO SCH (06:03)
[2023-02-08] MEDS: INSULIN SLIDING SCALE (NOVOLOG) 1 VIAL SQ SCH ×2 (06:03→16:15)
[2023-02-08] MEDS: PANTOPRAZOLE 20 MG TABLET PO SCH (10:07)
[2023-02-08] MEDS: MECLIZINE HCL 25 MG TABLET (FP) PO SCH (10:07)
[2023-02-08] MEDS: PRENATAL VITAMINS W/ FOLIC ACID TABLET (FP) PO SCH (10:07)
[2023-02-08] MEDS: MONTELUKAST NA 10 MG TABLET PO SCH (10:07)
[2023-02-08] MEDS: NICOTINE 7 MG/24 HOURS TOPICAL PATCH TD SCH (10:08)
[2023-02-08] MEDS: CLOTRIMAZOLE 1% CREAM TP SCH ×2 (10:08→21:01)
[2023-02-08] MEDS: LISINOPRIL 5 MG TABLET PO SCH (10:08)
[2023-02-08] MEDS: BENZTROPINE MESYLATE 0.5 MG TABLET (FP) PO SCH (21:00)
[2023-02-08] MEDS: risperiDONE 1 MG TABLET PO SCH (21:00)
[2023-02-08] MEDS: THIAMINE HCL 100 MG TABLET (FP) PO SCH (21:00)
[2023-02-08] MEDS: SUVOREXANT 10 MG TABLET PO PRN (21:01)
[2023-02-09] MEDS: metFORMIN HCL 500 MG TABLET (FP) PO SCH (06:34)
[2023-02-09] MEDS: glipiZIDE 5 MG TABLET (FP) PO SCH (06:34)
[2023-02-09] MEDS: INSULIN SLIDING SCALE (NOVOLOG) 1 VIAL SQ SCH ×2 (06:35→16:21)
[2023-02-09] MEDS: PRENATAL VITAMINS W/ FOLIC ACID TABLET (FP) PO SCH (09:55)
[2023-02-09] MEDS: MONTELUKAST NA 10 MG TABLET PO SCH (09:56)
[2023-02-09] MEDS: LISINOPRIL 5 MG TABLET PO SCH (09:56)
[2023-02-09] MEDS: MECLIZINE HCL 25 MG TABLET (FP) PO SCH (09:56)
[2023-02-09] MEDS: NICOTINE 7 MG/24 HOURS TOPICAL PATCH TD SCH (09:56)
[2023-02-09] MEDS: PANTOPRAZOLE 20 MG TABLET PO SCH (09:56)
[2023-02-09] MEDS: CLOTRIMAZOLE 1% CREAM TP SCH ×2 (09:56→21:30)
[2023-02-09] MEDS: THIAMINE HCL 100 MG TABLET (FP) PO SCH (21:21)
[2023-02-09] MEDS: risperiDONE 1 MG TABLET PO SCH (21:21)
[2023-02-09] MEDS: BENZTROPINE MESYLATE 0.5 MG TABLET (FP) PO SCH (21:21)
[2023-02-09] MEDS: SUVOREXANT 10 MG TABLET PO PRN (21:22)
[2023-02-10] MEDS: metFORMIN HCL 500 MG TABLET (FP) PO SCH (06:30)
[2023-02-10] MEDS: INSULIN SLIDING SCALE (NOVOLOG) 1 VIAL SQ SCH ×2 (06:31→16:23)
[2023-02-10] MEDS: glipiZIDE 5 MG TABLET (FP) PO SCH (06:31)
[2023-02-10] MEDS: LISINOPRIL 5 MG TABLET PO SCH (10:14)
[2023-02-10] MEDS: MONTELUKAST NA 10 MG TABLET PO SCH (10:14)
[2023-02-10] MEDS: PRENATAL VITAMINS W/ FOLIC ACID TABLET (FP) PO SCH (10:14)
[2023-02-10] MEDS: CLOTRIMAZOLE 1% CREAM TP SCH ×2 (10:15→21:08)
[2023-02-10] MEDS: NICOTINE 7 MG/24 HOURS TOPICAL PATCH TD SCH (10:15)
[2023-02-10] MEDS: MECLIZINE HCL 25 MG TABLET (FP) PO SCH (10:15)
[2023-02-10] MEDS: PANTOPRAZOLE 20 MG TABLET PO SCH (10:15)
[2023-02-10] MEDS: SUVOREXANT 10 MG TABLET PO PRN (21:07)
[2023-02-10] MEDS: BENZTROPINE MESYLATE 0.5 MG TABLET (FP) PO SCH (21:07)
[2023-02-10] MEDS: risperiDONE 1 MG TABLET PO SCH (21:07)
[2023-02-10] MEDS: THIAMINE HCL 100 MG TABLET (FP) PO SCH (21:07)
[2023-02-10] MEDS ORDERED: SUVOREXANT 10 MG TABLET PO PRN (22:00)
[2023-02-11] MEDS: glipiZIDE 5 MG TABLET (FP) PO SCH (06:32)
[2023-02-11] MEDS: metFORMIN HCL 500 MG TABLET (FP) PO SCH (06:32)
[2023-02-11] MEDS: INSULIN SLIDING SCALE (NOVOLOG) 1 VIAL SQ SCH ×2 (06:33→16:21)
[2023-02-11] MEDS: PRENATAL VITAMINS W/ FOLIC ACID TABLET (FP) PO SCH (10:31)
[2023-02-11] MEDS: MONTELUKAST NA 10 MG TABLET PO SCH (10:31)
[2023-02-11] MEDS: NICOTINE 7 MG/24 HOURS TOPICAL PATCH TD SCH (10:31)
[2023-02-11] MEDS: PANTOPRAZOLE 20 MG TABLET PO SCH (10:31)
[2023-02-11] MEDS: CLOTRIMAZOLE 1% CREAM TP SCH ×2 (10:31→21:22)
[2023-02-11] MEDS: LISINOPRIL 5 MG TABLET PO SCH (10:31)
[2023-02-11] MEDS: MECLIZINE HCL 25 MG TABLET (FP) PO SCH (10:31)
[2023-02-11] MEDS: SELENIUM SULFIDE 2.25% 180 ML SHAMPOO TP SCH (11:45)
[2023-02-11] MEDS: BENZTROPINE MESYLATE 0.5 MG TABLET (FP) PO SCH (21:22)
[2023-02-11] MEDS: risperiDONE 1 MG TABLET PO SCH (21:22)
[2023-02-11] MEDS: THIAMINE HCL 100 MG TABLET (FP) PO SCH (21:22)
[2023-02-11] MEDS: SUVOREXANT 10 MG TABLET PO PRN (21:22)
[2023-02-11] MEDS ORDERED: SUVOREXANT 10 MG TABLET PO PRN (22:00)
[2023-02-12] MEDS: metFORMIN HCL 500 MG TABLET (FP) PO SCH (06:18)
[2023-02-12] MEDS: glipiZIDE 5 MG TABLET (FP) PO SCH (06:18)
[2023-02-12] MEDS: INSULIN SLIDING SCALE (NOVOLOG) 1 VIAL SQ SCH ×2 (06:21→16:48)
[2023-02-12] MEDS: PRENATAL VITAMINS W/ FOLIC ACID TABLET (FP) PO SCH (10:02)
[2023-02-12] MEDS: NICOTINE 7 MG/24 HOURS TOPICAL PATCH TD SCH (10:03)
[2023-02-12] MEDS: MECLIZINE HCL 25 MG TABLET (FP) PO SCH (10:03)
[2023-02-12] MEDS: LISINOPRIL 5 MG TABLET PO SCH (10:03)
[2023-02-12] MEDS: PANTOPRAZOLE 20 MG TABLET PO SCH (10:03)
[2023-02-12] MEDS: MONTELUKAST NA 10 MG TABLET PO SCH (10:03)
[2023-02-12] MEDS: CLOTRIMAZOLE 1% CREAM TP SCH ×2 (10:04→21:08)
[2023-02-12] MEDS: SELENIUM SULFIDE 2.25% 180 ML SHAMPOO TP SCH (10:04)
[2023-02-12] MEDS: risperiDONE 1 MG TABLET PO SCH (21:07)
[2023-02-12] MEDS: THIAMINE HCL 100 MG TABLET (FP) PO SCH (21:08)
[2023-02-12] MEDS: BENZTROPINE MESYLATE 0.5 MG TABLET (FP) PO SCH (21:15)
[2023-02-13] MEDS: INSULIN SLIDING SCALE (NOVOLOG) 1 VIAL SQ SCH ×2 (07:01→16:28)
[2023-02-13] MEDS: metFORMIN HCL 500 MG TABLET (FP) PO SCH (07:01)
[2023-02-13] MEDS: glipiZIDE 5 MG TABLET (FP) PO SCH (07:01)
[2023-02-13] MEDS: MONTELUKAST NA 10 MG TABLET PO SCH (09:39)
[2023-02-13] MEDS: PRENATAL VITAMINS W/ FOLIC ACID TABLET (FP) PO SCH (09:39)
[2023-02-13] MEDS: MECLIZINE HCL 25 MG TABLET (FP) PO SCH (09:39)
[2023-02-13] MEDS: LISINOPRIL 5 MG TABLET PO SCH (09:39)
[2023-02-13] MEDS: PANTOPRAZOLE 20 MG TABLET PO SCH (09:39)
[2023-02-13] MEDS: CLOTRIMAZOLE 1% CREAM TP SCH ×2 (09:40→21:12)
[2023-02-13] MEDS: NICOTINE 7 MG/24 HOURS TOPICAL PATCH TD SCH (09:40)
[2023-02-13] MEDS: SELENIUM SULFIDE 2.25% 180 ML SHAMPOO TP SCH (10:15)
[2023-02-13] MEDS: COLLOIDAL OATMEAL 1 BAR EACH TP PRN ×2 (13:45→17:17)
[2023-02-13] MEDS: risperiDONE 1 MG TABLET PO SCH (21:10)
[2023-02-13] MEDS: THIAMINE HCL 100 MG TABLET (FP) PO SCH (21:10)
[2023-02-13] MEDS: SUVOREXANT 10 MG TABLET PO PRN (21:10)
[2023-02-13] MEDS: BENZTROPINE MESYLATE 0.5 MG TABLET (FP) PO SCH (21:12)
[2023-02-14] MEDS: glipiZIDE 5 MG TABLET (FP) PO SCH (06:14)
[2023-02-14] MEDS: metFORMIN HCL 500 MG TABLET (FP) PO SCH (06:14)
[2023-02-14] MEDS: INSULIN SLIDING SCALE (NOVOLOG) 1 VIAL SQ SCH ×2 (06:15→16:36)
[2023-02-14] MEDS: PRENATAL VITAMINS W/ FOLIC ACID TABLET (FP) PO SCH (09:18)
[2023-02-14] MEDS: MECLIZINE HCL 25 MG TABLET (FP) PO SCH (09:18)
[2023-02-14 09:19] VITALS: RESP 18
[2023-02-14] MEDS: PANTOPRAZOLE 20 MG TABLET PO SCH (09:19)
[2023-02-14] MEDS: MONTELUKAST NA 10 MG TABLET PO SCH (09:19)
[2023-02-14] MEDS: LISINOPRIL 5 MG TABLET PO SCH (09:19)
[2023-02-14] MEDS: CLOTRIMAZOLE 1% CREAM TP SCH ×2 (09:19→21:30)
[2023-02-14] MEDS: SELENIUM SULFIDE 2.25% 180 ML SHAMPOO TP SCH (09:19)
[2023-02-14] MEDS: NICOTINE 7 MG/24 HOURS TOPICAL PATCH TD SCH (09:19)
[2023-02-14] MEDS: risperiDONE 1 MG TABLET PO SCH (21:29)
[2023-02-14] MEDS: BENZTROPINE MESYLATE 0.5 MG TABLET (FP) PO SCH (21:29)
[2023-02-14] MEDS: SUVOREXANT 10 MG TABLET PO PRN (21:29)
[2023-02-14] MEDS: THIAMINE HCL 100 MG TABLET (FP) PO SCH (21:29)
[2023-02-15] MEDS: metFORMIN HCL 500 MG TABLET (FP) PO SCH (06:20)
[2023-02-15] MEDS: glipiZIDE 5 MG TABLET (FP) PO SCH (06:21)
[2023-02-15] MEDS: INSULIN SLIDING SCALE (NOVOLOG) 1 VIAL SQ SCH (06:24)
[2023-02-15 06:52] VITALS: TEMP 97.5
[2023-02-15] MEDS: MONTELUKAST NA 10 MG TABLET PO SCH (09:06)
[2023-02-15] MEDS: PRENATAL VITAMINS W/ FOLIC ACID TABLET (FP) PO SCH (09:06)
[2023-02-15] MEDS: PANTOPRAZOLE 20 MG TABLET PO SCH (09:06)
[2023-02-15] MEDS: MECLIZINE HCL 25 MG TABLET (FP) PO SCH (09:06)
[2023-02-15] MEDS: LISINOPRIL 5 MG TABLET PO SCH (09:06)
[2023-02-15] MEDS: NICOTINE 7 MG/24 HOURS TOPICAL PATCH TD SCH (09:07)
[2023-02-15] MEDS: CLOTRIMAZOLE 1% CREAM TP SCH (09:07)
[2023-02-15] MEDS: SELENIUM SULFIDE 2.25% 180 ML SHAMPOO TP SCH (09:07)
[2023-02-15 09:24] VITALS: BP 139/80; PULSE 110
[2023-02-15] MEDS ORDERED: SUVOREXANT 10 MG TABLET PO PRN (22:00)
== END 2023-02-15 09:58 | disposition home or self-care (01) | DRG 772 ==
LOC: YASAS 14:33 → Y3W 18:47
PROVIDERS: ADMIT Allergy & Immunology; ATTEND Psychiatry & Neurology Pain Medicine
PROC: HZ42ZZZ Group Counseling for Substance Abuse Treatment, Cognitive-Behavioral (ICD-10-PCS; principal; 2023-02-01)
DX: F14.20 Cocaine dependence, uncomplicated (principal); F17.210 Nicotine dependence, cigarettes, uncomplicated; F20.0 Paranoid schizophrenia; F19.24 Other psychoactive substance dependence with psychoactive substance-induced mood disorder; J45.909 Unspecified asthma, uncomplicated; I10 Essential (primary) hypertension; K21.9 Gastro-esophageal reflux disease without esophagitis; E11.9 Type 2 diabetes mellitus without complications; Z79.84 Long term (current) use of oral hypoglycemic drugs; G47.00 Insomnia, unspecified; L21.0 Seborrhea capitis; B35.0 Tinea barbae and tinea capitis; Z28.310 Unvaccinated for COVID-19; Z28.9 Immunization not carried out for unspecified reason
CPT/HCPCS: 36415; 80053; 80307; 81003; 82962; 85027; 86780; 86803; 87635

== ENCOUNTER 2023-03-28 13:29 | Inpatient (IN) | payer OTHER ==
[2023-03-28 14:17] VITALS: BMI 26.6
[2023-03-28] MEDS ORDERED: ALBUTEROL SO4 HFA INHALER IH PRN (17:07)
[2023-03-28] MEDS ORDERED: guaiFENesin 600 MG TABLET.ER (FP) PO PRN (19:31)
[2023-03-28] MEDS ORDERED: P-EPHED 60MG/TRIPROLIDI 2.5MG TABLET PO PRN (19:31)
[2023-03-28] MEDS ORDERED: MAGNESIUM HYDROX 2400MG/30ML ORAL SUSPENSION 30 ML CUP PO PRN (19:31)
[2023-03-28] MEDS ORDERED: IBUPROFEN 600 MG TABLET (FP) PO PRN (19:31)
[2023-03-28] MEDS ORDERED: METHOCARBAMOL 500 MG TABLET PO PRN (19:31)
[2023-03-28] MEDS ORDERED: BENZONATATE 200 MG CAPSULE PO PRN (19:31)
[2023-03-28] MEDS ORDERED: POLYETHYLENE GLYCOL (HEALTHYLAX) 3350 17 GM PACKET PO PRN (19:31)
[2023-03-28] MEDS ORDERED: hydrOXYzine PAMOATE 25 MG CAPSULE (FP) PO PRN (19:31)
[2023-03-28] MEDS ORDERED: LOPERAMIDE HCL 2 MG CAPSULE PO PRN (19:31)
[2023-03-28] MEDS ORDERED: BENZOCAINE/MENTHOL (CHLORASEPTIC ) LOZENGE MM PRN (19:31)
[2023-03-28] MEDS ORDERED: DICYCLOMINE HCL 10 MG CAPSULE PO PRN (19:31)
[2023-03-28] MEDS ORDERED: IBUPROFEN 400 MG TABLET (FP) PO PRN (19:31)
[2023-03-28] MEDS ORDERED: ONDANSETRON *ODT* 4 MG TABLET SL PRN (19:31)
[2023-03-28] MEDS ORDERED: MAG HYDROX/AL HYDROX/SIMETH 30 ML UNIT-DOSE CUP PO PRN (19:31)
[2023-03-28] MEDS ORDERED: BISMUTH SUBSALICYLATE 524 MG/30 ML PO PRN (19:31)
[2023-03-28] MEDS: THIAMINE HCL 100 MG TABLET (FP) PO SCH (21:07)
[2023-03-28] MEDS: MONTELUKAST NA 10 MG TABLET PO SCH (21:07)
[2023-03-28] MEDS: BUDESONIDE/FORMETEROL FUMARATE 80/4.5 mcg INHALER IH SCH (21:07)
[2023-03-28] MEDS: MELATONIN 5 MG TABLETS PO SCH (21:07)
[2023-03-28] MEDS: ACETAMINOPHEN 325 MG TABLET (FP) PO PRN (21:08)
[2023-03-29] MEDS: glipiZIDE 5 MG TABLET (FP) PO SCH (06:16)
[2023-03-29] MEDS: metFORMIN HCL 500 MG TABLET (FP) PO SCH (06:16)
[2023-03-29] MEDS: sitaGLIPtin PHOSPHATE 50 MG TABLET PO SCH (06:18)
[2023-03-29] MEDS: FOLIC ACID 1 MG TABLET (FP) PO SCH (09:42)
[2023-03-29] MEDS: PRENATAL VITAMINS W/ FOLIC ACID TABLET (FP) PO SCH (09:42)
[2023-03-29] MEDS: PANTOPRAZOLE 20 MG TABLET PO SCH (09:42)
[2023-03-29] MEDS: BUDESONIDE/FORMETEROL FUMARATE 80/4.5 mcg INHALER IH SCH ×2 (09:42→21:39)
[2023-03-29] MEDS ORDERED: glipiZIDE 5 MG TABLET (FP) PO SCH (10:00)
[2023-03-29] MEDS ORDERED: METFORMIN HCL 1000 MG PO SCH (10:00)
[2023-03-29] MEDS ORDERED: PATIENT'S OWN MEDICATION (NON-FORMULARY) (Omeprazole [Omeprazole] 20 MG Tablet.Dr) PO SCH (10:00)
[2023-03-29 11:06] LABS: HEMATOCRIT 43.7 % (35.4-49); HEMOGLOBIN 14.1 GM/dL (11.7-16.9); MCH 26.9 pg (25.7-33.7); MCHC 32.2 g/dl (32.0-35.9); MEAN CELL VOLUME 83.4 fl (80-96); PLATELET COUNT 219 10^3/uL (134-434); RBC 5.24 M/mm3 (4.00-5.60); RDW 14.2 % (11.9-15.9); WHITE BLOOD COUNT 7.2 K/mm3 (4.0-10.0)
[2023-03-29 11:17] LABS: POTASSIUM 3.7 mmol/L (3.5-5.1)
[2023-03-29] MEDS: LISINOPRIL 5 MG TABLET PO SCH (11:18)
[2023-03-29 11:24] LABS: CALCIUM 8.9 mg/dL (8.5-10.1)
[2023-03-29 11:25] LABS: BLOOD UREA NITROGEN 8.8 mg/dL (7-18); CREATININE 0.9 mg/dL (0.55-1.3)
[2023-03-29 11:27] LABS: BILIRUBIN,TOTAL 0.3 mg/dL (0.2-1); TOT PROT 6.5 g/dl (6.4-8.2)
[2023-03-29] MEDS: MELATONIN 5 MG TABLETS PO SCH (21:37)
[2023-03-29] MEDS: THIAMINE HCL 100 MG TABLET (FP) PO SCH (21:37)
[2023-03-29] MEDS: MONTELUKAST NA 10 MG TABLET PO SCH (21:38)
[2023-03-29] MEDS: BENZTROPINE MESYLATE 1 MG TABLET PO SCH (21:38)
[2023-03-29] MEDS ORDERED: risperiDONE 1 MG TABLET PO SCH (22:00)
[2023-03-30] MEDS: sitaGLIPtin PHOSPHATE 50 MG TABLET PO SCH (07:02)
[2023-03-30] MEDS: metFORMIN HCL 500 MG TABLET (FP) PO SCH (07:02)
[2023-03-30] MEDS: glipiZIDE 5 MG TABLET (FP) PO SCH (07:03)
[2023-03-30] MEDS: PANTOPRAZOLE 20 MG TABLET PO SCH (10:15)
[2023-03-30] MEDS: FOLIC ACID 1 MG TABLET (FP) PO SCH (10:15)
[2023-03-30] MEDS: BUDESONIDE/FORMETEROL FUMARATE 80/4.5 mcg INHALER IH SCH ×2 (10:15→21:35)
[2023-03-30] MEDS: PRENATAL VITAMINS W/ FOLIC ACID TABLET (FP) PO SCH (10:15)
[2023-03-30] MEDS: LISINOPRIL 5 MG TABLET PO SCH (10:15)
[2023-03-30] MEDS: BENZTROPINE MESYLATE 1 MG TABLET PO SCH ×2 (10:16→21:35)
[2023-03-30] MEDS: MONTELUKAST NA 10 MG TABLET PO SCH (21:35)
[2023-03-30] MEDS: THIAMINE HCL 100 MG TABLET (FP) PO SCH (21:35)
[2023-03-30] MEDS: risperiDONE 3 MG TABLET PO SCH (21:35)
[2023-03-30] MEDS: MELATONIN 5 MG TABLETS PO SCH (21:35)
[2023-03-31] MEDS: glipiZIDE 5 MG TABLET (FP) PO SCH (06:07)
[2023-03-31] MEDS: metFORMIN HCL 500 MG TABLET (FP) PO SCH (06:07)
[2023-03-31] MEDS: sitaGLIPtin PHOSPHATE 50 MG TABLET PO SCH (06:08)
[2023-03-31] MEDS: BUDESONIDE/FORMETEROL FUMARATE 80/4.5 mcg INHALER IH SCH ×2 (09:56→22:29)
[2023-03-31] MEDS: PRENATAL VITAMINS W/ FOLIC ACID TABLET (FP) PO SCH (09:57)
[2023-03-31] MEDS: PANTOPRAZOLE 20 MG TABLET PO SCH (09:57)
[2023-03-31] MEDS: FOLIC ACID 1 MG TABLET (FP) PO SCH (09:57)
[2023-03-31] MEDS: LISINOPRIL 5 MG TABLET PO SCH (09:57)
[2023-03-31] MEDS: BENZTROPINE MESYLATE 1 MG TABLET PO SCH ×2 (09:57→22:28)
[2023-03-31] MEDS: THIAMINE HCL 100 MG TABLET (FP) PO SCH (22:29)
[2023-03-31] MEDS: MELATONIN 5 MG TABLETS PO SCH (22:29)
[2023-03-31] MEDS: MONTELUKAST NA 10 MG TABLET PO SCH (22:29)
[2023-03-31] MEDS: risperiDONE 3 MG TABLET PO SCH (22:29)
[2023-03-31] MEDS: ACETAMINOPHEN 325 MG TABLET (FP) PO PRN (22:51)
[2023-04-01] MEDS: metFORMIN HCL 500 MG TABLET (FP) PO SCH (06:23)
[2023-04-01] MEDS: sitaGLIPtin PHOSPHATE 50 MG TABLET PO SCH (06:23)
[2023-04-01] MEDS: glipiZIDE 5 MG TABLET (FP) PO SCH (06:23)
[2023-04-01] MEDS: LISINOPRIL 5 MG TABLET PO SCH (11:00)
[2023-04-01] MEDS: PRENATAL VITAMINS W/ FOLIC ACID TABLET (FP) PO SCH (11:00)
[2023-04-01] MEDS: PANTOPRAZOLE 20 MG TABLET PO SCH (11:00)
[2023-04-01] MEDS: FOLIC ACID 1 MG TABLET (FP) PO SCH (11:01)
[2023-04-01] MEDS: BENZTROPINE MESYLATE 1 MG TABLET PO SCH (11:01)
[2023-04-01] MEDS: BUDESONIDE/FORMETEROL FUMARATE 80/4.5 mcg INHALER IH SCH (11:02)
[2023-04-01 13:18] VITALS: BP 117/77; PULSE 90; RESP 16; TEMP 98.4
== END 2023-04-01 15:29 | disposition home or self-care (01) | DRG 774 ==
LOC: YASAS 13:29 → Y3N 19:38
PROVIDERS: ADMIT Allergy & Immunology; ATTEND Surgery
PROC: HZ2ZZZZ Detoxification Services for Substance Abuse Treatment (ICD-10-PCS; principal; 2023-03-28)
DX: F10.20 Alcohol dependence, uncomplicated (principal); F14.20 Cocaine dependence, uncomplicated; F17.210 Nicotine dependence, cigarettes, uncomplicated; F19.24 Other psychoactive substance dependence with psychoactive substance-induced mood disorder; F20.9 Schizophrenia, unspecified; U07.1 COVID-19; I10 Essential (primary) hypertension; K21.9 Gastro-esophageal reflux disease without esophagitis; J45.909 Unspecified asthma, uncomplicated; E11.9 Type 2 diabetes mellitus without complications; Z79.84 Long term (current) use of oral hypoglycemic drugs; Z28.310 Unvaccinated for COVID-19; Z28.9 Immunization not carried out for unspecified reason
CPT/HCPCS: 36415; 80053; 82962; 85027; 86780; 87635; 87811

== ENCOUNTER 2023-12-20 11:16 | Inpatient (IN) | payer OTHER ==
[2023-12-20 11:40] VITALS: BMI 29.2
[2023-12-20] MEDS ORDERED: MAG HYDROX/AL HYDROX/SIMETH 30 ML UNIT-DOSE CUP PO PRN (13:57)
[2023-12-20] MEDS ORDERED: guaiFENesin 600 MG TABLET.ER (FP) PO PRN (13:57)
[2023-12-20] MEDS ORDERED: POLYETHYLENE GLYCOL (HEALTHYLAX) 3350 17 GM PACKET PO PRN (13:57)
[2023-12-20] MEDS ORDERED: IBUPROFEN 400 MG TABLET (FP) PO PRN (13:57)
[2023-12-20] MEDS ORDERED: NALOXONE HCL 0.4 MG/ML VIAL IM PRN (13:57)
[2023-12-20] MEDS ORDERED: BENZOCAINE/MENTHOL (CHLORASEPTIC ) LOZENGE MM PRN (13:57)
[2023-12-20] MEDS ORDERED: BENZONATATE 200 MG CAPSULE PO PRN (13:57)
[2023-12-20] MEDS ORDERED: MAGNESIUM HYDROX 2400MG/30ML ORAL SUSPENSION 30 ML CUP PO PRN (13:57)
[2023-12-20] MEDS ORDERED: NALOXONE (NARCAN) HCL 4 MG/0.1 ML SPRAY NS PRN (13:57)
[2023-12-20] MEDS ORDERED: LOPERAMIDE HCL 2 MG CAPSULE PO PRN (13:57)
[2023-12-20] MEDS: hydrOXYzine PAMOATE 25 MG CAPSULE (FP) PO PRN (17:13)
[2023-12-20] MEDS: metFORMIN HCL 500 MG TABLET (FP) PO SCH (17:13)
[2023-12-20] MEDS: ATORVASTATIN CA 40 MG TABLET (FP) PO SCH (21:59)
[2023-12-20] MEDS: THIAMINE 100 MG TABLET PO SCH (21:59)
[2023-12-20] MEDS: MELATONIN 5 MG TABLETS PO SCH (21:59)
[2023-12-21 06:03] VITALS: PULSE 90
[2023-12-21] MEDS: PRENATAL VITAMINS W/ FOLIC ACID TABLET (FP) PO SCH (09:49)
[2023-12-21] MEDS: PANTOPRAZOLE 40 MG TABLET PO SCH (09:49)
[2023-12-21] MEDS: ASPIRIN 81 MG CHEWABLE TABLETS PO SCH (09:49)
[2023-12-21] MEDS: NICOTINE 14 MG/24 HOURS TOPICAL PATCH TD SCH (09:50)
[2023-12-21 14:47] LABS: HEMOGLOBIN 13.2 GM/dL (11.7-16.9); MCH 26.5 pg (25.7-33.7); MCHC 32.1 g/dl (32.0-35.9); MEAN CELL VOLUME 82.5 fl (80-96); MEAN PLT VOLUME 8.6 fl (7.5-11.1); PLATELET COUNT 184 10^3/uL (134-434); RBC 4.97 M/mm3 (4.00-5.60); RDW 13.4 % (11.9-15.9); WHITE BLOOD COUNT 8.2 K/mm3 (4.0-10.0)
[2023-12-21 15:04] LABS: ALBUMIN 4.1 g/dl (3.4-5.0); BLOOD UREA NITROGEN 13.9 mg/dL (7-18)
[2023-12-21 15:05] LABS: CALCIUM 9.9 mg/dL (8.5-10.1)
[2023-12-21 15:06] LABS: BILIRUBIN,TOTAL 0.4 mg/dL (0.2-1); CREATININE 0.9 mg/dL (0.55-1.3); TOT PROT 7.5 g/dl (6.4-8.2)
[2023-12-21] MEDS: BENZTROPINE MESYLATE 1 MG TABLET PO SCH (21:17)
[2023-12-21] MEDS: PALIPERIDONE 9 MG TABELT ER PO SCH (21:17)
[2023-12-21] MEDS: traZODone HCL 100 MG TABLET (FP) PO SCH (21:18)
[2023-12-22] MEDS: VENLAFAXINE HCL 75 MG E.R. CAPSULES PO SCH (10:21)
[2023-12-22 18:42] LABS: URINE APPEARANCE CLEAR; URINE BILIRUBIN NEGATIVE (NEGATIVE); URINE COLOR YELLOW; URINE GLUCOSE (UA) NEGATIVE (NEGATIVE); URINE KETONE NEGATIVE (NEGATIVE); URINE LEUK ESTERASE NEGATIVE (NEGATIVE); URINE NITRITE NEGATIVE (NEGATIVE); URINE PROTEIN NEGATIVE (NEGATIVE); URINE UROBILINOGEN 0.2 mg/dL (0.2-1.0)
[2023-12-23] MEDS: NICOTINE POLACRILEX 2 MG GUM BUC PRN (12:01)
[2023-12-26] MEDS: ACETAMINOPHEN 325 MG TABLET (FP) PO PRN (15:29)
[2023-12-27] MEDS: BACITRACIN 0.9 GM PACKET TP SCH (12:26)
[2023-12-27] MEDS: NALTREXONE HCL 50 MG TABLET PO ONE (14:02)
[2023-12-27] MEDS: BACLOFEN 10 MG TABLET (FP) PO SCH (21:04)
[2023-12-28] MEDS: NALTREXONE HCL 50 MG TABLET PO SCH (10:08)
[2023-12-28 12:09] LABS: INR 0.91 (0.83-1.09); PROTHROMBIN TIME (PATIENT) 10.5 SEC (9.7-13.0)
[2023-12-28 12:16] LABS: MAGNESIUM 1.2 mg/dL (1.8-2.4)
[2023-12-28] MEDS: IBUPROFEN 600 MG TABLET (FP) PO PRN (16:30)
[2023-12-30] MEDS: CHOLECALCIFEROL (VIT D3) 400 UNIT (10 MCG) TABLET PO SCH (10:36)
[2023-12-30] MEDS: MAGNESIUM OXIDE 400 MG TABLET (FP) PO SCH (10:36)
[2023-12-30] MEDS ORDERED: NALOXONE (NYS OPIOID OVERDOSE PROGRAM) 4 MG/0.1 ML SPRAY NS PRN (14:52)
[2024-01-06] MEDS ORDERED: OXYMETAZOLINE 0.05% NASAL SOLUTION 15 ML BOTTLE NS PRN (14:43)
[2024-01-09] MEDS: NALTREXONE MICROSPHERES (VIVITROL) 380 MG DISP.SYRIN IM ONE (13:43)
[2024-01-11 12:30] VITALS: BP 128/84; RESP 18; TEMP 98.1
[2024-01-11 15:02] LABS: BASO % 0.7 % (0-2.0); HEMATOCRIT 45.4 % (35.4-49); HEMOGLOBIN 14.4 GM/dL (11.7-16.9); LYMPH % 30.5 % (8-40); MCH 26.6 pg (25.7-33.7); MCHC 31.7 g/dl (32.0-35.9); MEAN PLT VOLUME 8.9 fl (7.5-11.1); MONO % 11.3 % (3.8-10.2); NEUT % 55.5 % (42.8-82.8); PLATELET COUNT 194 10^3/uL (134-434); RDW 14.3 % (11.9-15.9); WHITE BLOOD COUNT 8.7 K/mm3 (4.0-10.0)
[2024-01-11 15:35] LABS: POTASSIUM 4.6 mmol/L (3.5-5.1)
[2024-01-11 15:36] LABS: CALCIUM 9.6 mg/dL (8.5-10.1)
[2024-01-11 15:37] LABS: BLOOD UREA NITROGEN 7.6 mg/dL (7-18)
[2024-01-11 15:41] LABS: CREATININE 0.9 mg/dL (0.55-1.3)
== END 2024-01-11 10:25 | disposition home or self-care (01) | DRG 772 ==
LOC: SUATTDRO 11:16 → YASAS 11:16 → Y3NR 15:16 → Y5N 12-21 10:59
PROVIDERS: ADMIT Psychiatry & Neurology Pain Medicine; ATTEND Psychiatry & Neurology Pain Medicine
PROC: HZ42ZZZ Group Counseling for Substance Abuse Treatment, Cognitive-Behavioral (ICD-10-PCS; principal; 2023-12-20)
DX: F14.20 Cocaine dependence, uncomplicated (principal); F10.20 Alcohol dependence, uncomplicated; F12.20 Cannabis dependence, uncomplicated; F17.210 Nicotine dependence, cigarettes, uncomplicated; F20.0 Paranoid schizophrenia; F19.282 Other psychoactive substance dependence with psychoactive substance-induced sleep disorder; F19.24 Other psychoactive substance dependence with psychoactive substance-induced mood disorder; F32.A Depression, unspecified; I10 Essential (primary) hypertension; J45.909 Unspecified asthma, uncomplicated; K21.9 Gastro-esophageal reflux disease without esophagitis; E11.9 Type 2 diabetes mellitus without complications; Z79.84 Long term (current) use of oral hypoglycemic drugs; R12 Heartburn
CPT/HCPCS: 0241U-QW; 36415; 80048; 80053; 80061; 80305; 80307; 81003; 82140; 82652; 82962; 83036; 83735; 85025; 85027; 85610; 86780; 87811; 93005; 93010; J0475; J2315